=== PATIENT | female | born 1990 | race African-American/Black ===

== ENCOUNTER 2022-02-24 14:51 | Emergency (ER) | payer MEDICAID, OTHER ==
[~2022-02-24] VITALS: Ht 165.1 cm; Wt 69.0 kg
[2022-02-24 14:58] VITALS: BP 140/89
== END 2022-02-24 21:06 | disposition home or self-care (01) ==
LOC: ER 14:51
DX: R20.0 Anesthesia of skin (principal)
CPT/HCPCS: 99284